=== PATIENT | female | born 1935 | race Caucasian/White ===

== ENCOUNTER 2016-12-30 11:43 | Emergency (ER) | payer OTHER ==
[~2016-12-30] VITALS: Ht 160 cm; Wt 81.6 kg
[~2016-12-30 11:43] MED LIST: ANUSOL HC30 GM TOP; CIPRO500 M1 PO; CLONAZEPAM0.5 MG PO; COUMADIN1 M1 PO; DETROL LA 4MG4 MG PO; ESCITALOPRAM OX10 MG PO; ESCITALOPRAM10 MG PO; FLAGYL500 MG PO; GALANTAMINE PO; LASIX20 M1 PO; LIPITOR40 M1 PO; MIRTAZAPINE15 M2 PO; NAMENDA10 M2 PO; NEXIUM 40MG40 MG PO; NEXIUM40 M1 PO; PRINIVIL10 M1 PO; RAZADYNE ER16 M1 PO; REQUIP0.25 MG PO; RISPERDAL1 MG PO; SINEMET 10-1001 TAB PO; SINEMET CR 50 M1 TER PO; SINEMET CR 50-1 EACH PO; VERAPAMIL ER240 M1 PO; VITAB121000 PO; ZOFRAN4 M1 PO
[2016-12-30 11:59] VITALS: BP 147/79
--- NOTE | 2016-12-30 12:22 | ED MVC/FALL/TRAUMA COMPLAINT ---
History of Present Illness General Chief Complaint: Laceration Procedure Stated Complaint: SKIN TEAR TO LEFT NECK, PAIN. Source: patient Exam Limitations: no limitations Vital Signs & Intake/Output Vital Signs & Intake/Output Vital Signs Date Time Temp Pulse Resp B/P Pulse O2 O2 Flow FiO2 Ox Delivery Rate 12/30 1159 98.0 58 18 147/79 97 Room Air ED Intake and Output 12/31 0000 12/30 1200 Intake Total Output Total Balance Patient 180 lb Weight Allergies Coded Allergies: NO KNOWN ALLERGIES (08/03/15) Reconcile Medications Atorvastatin Calcium (Lipitor) 40 MG TAB 1 TAB PO DAILY CHOLESTEROL (Reported ) Carbidopa/Levodopa (Sinemet Cr) 50 MG/[address] 1 TAB PO BID PARKINSONS ( Reported) Ciprofloxacin HCl (Cipro) 500 MG TABLET 1 TAB PO BID DIVERTICULITIS Cyanocobalamin (Vitamin B-12) 1,000 MCG TAB 1 TAB PO DAILY V (Reported) Escitalopram Oxalate 10 MG TAB 1 TAB PO DAILY DEPRESSION (Reported) Esomeprazole (Nexium) 40 MG CAP 1 CAP PO DAILY GI (Reported) Furosemide (Lasix) 20 MG TAB 1 TAB PO DAILY FLUID (Reported) GALANTAMINE HBR (Galantamine HBr) 16 MG CER 1 TAB PO DAILY DEMENTIA (Reported ) Lisinopril 10 MG TAB 1 TAB PO DAILY HTN (Reported) MEMANTINE HCL (Namenda) 10 MG TAB 10 MG PO DAILY DEMENTIA (Reported) Metronidazole (Flagyl) 500 MG TABLET 1 TAB PO 4 TIMES/DAY DIVERTICULITIS Mirtazapine 15 MG TAB 1 TAB PO QPM SLEEP (Reported) Ondansetron (Zofran Odt) 4 MG ODT 1 TAB PO Q6HR PRN NAUSEA Risperidone (Risperdal) 1 MG TAB 1 MG PO PRN ANXIETY (Reported) ROPINIROLE HCL (Ropinirole Hydrochloride) 0.25 MG TAB 1 TAB PO DAILY LEGS ( Reported) VERAPAMIL HCL (Verapamil ER) [address] 1 TAB PO DAILY HR (Reported) Warfarin Sodium (Coumadin) 1 MG TAB 1 TAB PO DAILY BLOOD THINNER (Reported) Triage Note: RECEIVED 81 YO FEMALE C/O SKIN TEAR TO LEFT NECK AREA, PT REPORTS SPOTTING WHEN CHANGING BANDAIDS, PT SAYS HER SKIN IS VERY THIN Triage Nurses Notes Reviewed? yes Onset: Abrupt Duration: day(s): (1) Timing: single episode today Severity: mild Injuries/Fall Location: neck (left) Method of Injury: rubbed with washcloth No Modifying Factors: none Associated Symptoms: MINIMAL BLEEDING HPI: 81 year old female presents to the ER with bleeding from the left neck which started after washing her neck in the shower with a washcloth. She is on eliquis and aspirin. She placed a dressing yesterday and was concerned so she wanted to have it checked today. Past History Travel History Traveled to [place] past 21 day No Medical History Any Pertinent Medical History? see below for history Neurological: dementia, Parkinson's disease EENT: NONE Cardiovascular: hypertension, HIGH CHOLESTEROL Respiratory: BLOOD CLOTS IN LUNGS Gastrointestinal: NONE Hepatic: NONE Renal: NONE Musculoskeletal: NONE Psychiatric: NONE Endocrine: NONE Surgical History Surgical History: non-contributory Psychosocial History Who do you live with Patient/Self Services at Home None What is your primary language Citizen Of [place] Tobacco Use: Never used Family History Hx Contributory? No Review of Systems Review of Systems Constitutional: Denies: chills, fever. Eyes: Reports: no symptoms. Ears, Nose, Throat, Mouth: Reports: no symptoms. Respiratory: Denies: cough. Cardiovascular: Denies: chest pain. Gastrointestinal/Abdominal: Reports: no symptoms. Genitourinary: Reports: no symptoms. Musculoskeletal: Reports: neck pain. Denies: back pain. Skin: Reports: see HPI (BLEEDING), erythema. Neurological/Psychological: Reports: no symptoms. All Other Systems: Reviewed and Negative Physical Exam Physical Exam General Appearance: well developed/nourished, alert, anxious Head: atraumatic, normal appearance Eyes: Bilateral: normal appearance, PERRL. Ears, Nose, Throat, Mouth: dental injury, moist mucous membrane Neck: LEFT NECK SKIN TEAR, MINIMAL OOZING FROM SITE Respiratory: normal breath sounds, chest non-tender, no respiratory distress Cardiovascular: regular rate/rhythm Extremities: normal range of motion Neurologic/Psych: no motor/sensory deficits, awake, alert, oriented x 3 Skin: intact, normal color, warm/dry, ecchymosis (AREAS AROUND LEFT NECK) Core Measures ACS in differential dx? No Severe Sepsis Present: No Septic Shock Present: No Progress Differential Diagnosis: LEFT NECK SKIN TEAR Plan of Care: BACITRACIN, NON ADHERENT DRESSING PLACED Departure Departure Time of Disposition: 1230 Disposition: HOME OR SELF CARE Condition: Stable Clinical Impression Primary Impression: Skin tear Referrals: CAYLA TEMPLETON MD (PCP/Family) Additional Instructions: Topical antibiotic ointment as discussed and dressing change. Return as needed. Departure Forms: Customer Survey General Discharge Information
== END 2016-12-30 12:50 ==
LOC: ERH 11:43
DX: S11.91XA Laceration without foreign body of unspecified part of neck, initial encounter (principal); X58.XXXA Exposure to other specified factors, initial encounter; Y93.E1 Activity, personal bathing and showering; Y92.9 Unspecified place or not applicable
CPT/HCPCS: 99282

== ENCOUNTER 2017-01-24 13:54 | Emergency (ER) | payer OTHER ==
[~2017-01-24] VITALS: Ht 160 cm; Wt 82.6 kg
--- NOTE | 2017-01-24 14:23 | ED GENERAL ADULT ---
History of Present Illness General Chief Complaint: General Adult Stated Complaint: SENT IT BY DR TEMPLETON, ?LOW HR Source: patient, old records Exam Limitations: no limitations Vital Signs & Intake/Output Vital Signs & Intake/Output Vital Signs Date Time Temp Pulse Resp B/P B/P Pulse O2 O2 Flow FiO2 Mean Ox Delivery Rate 01/24 1746 69 18 144/72 98 Room Air 01/24 1534 97.6 62 18 129/62 97 Room Air 01/24 1452 97 01/24 1436 98.9 63 15 132/74 100 Room Air Allergies Coded Allergies: NO KNOWN ALLERGIES (08/03/15) Reconcile Medications Aspirin (Aspirin*) 81 MG TAB.CHEW 1 TAB PO DAILY HEART HEALTH (Reported) Atorvastatin Calcium (Lipitor) 40 MG TABLET 1 TAB PO DAILY CHOLESTEROL ( Reported) Carbidopa/Levodopa (Sinemet Cr 50-200 Tablet) 50 MG-200 MG TABLET.ER 1 TAB PO BID PARKINSONS (Reported) Escitalopram Oxalate 10 MG TABLET 1 TAB PO DAILY DEPRESSION (Reported) Esomeprazole (Nexium) 40 MG CAPSULE.DR 1 CAP PO DAILY GI (Reported) Furosemide (Lasix) 20 MG TABLET 1 TAB PO DAILY WATER RETENTION (Reported) Galantamine HBr (Razadyne ER) 16 MG CAP24H.PEL 1 TAB PO DAILY DEMENTIA ( Reported) Krill/Om-3/Dha/Epa/Phospho/Ast (Megared [place]-3 Krill Oil Sfgl) 300-90-24 CAPSULE 1 CAP PO DAILY SUPPLEMENT (Reported) Linaclotide (Linzess) 290 MCG CAPSULE 1 CAP PO DAILY UNKNOWN (Reported) Lisinopril (Prinivil) 10 MG TABLET 1 TAB PO DAILY HTN (Reported) Memantine HCl (Namenda) 10 MG TABLET 1 TAB PO DAILY DEMENTIA (Reported) Mirtazapine 15 MG TABLET 1 TAB PO QPM SLEEP (Reported) Ropinirole Hydrochloride (Requip) 0.25 MG TABLET 1 TAB PO DAILY LEGS ( Reported) Verapamil HCl (Verapamil ER) 240 MG TABLET.ER 1 TAB PO DAILY HR (Reported) Warfarin Sodium (Coumadin) 1 MG TABLET 1 TAB PO 1700 BLOOD THINNER (Reported) Triage Note: PT TO ED FROM DR. HADLEY'S OFFICE FOR "LOW HEART RATE" PT STATING SHE HAD A NEAR SYNCOPAL EPISODE "ONE NIGHT LAST WEEK" PT STATING SHE GOT UP TO USE THE BATHROOM, FELL TO THE GROUND AND THEN "I LIED THERE FOR A FEW MINUTES THEN WENT BACK TO BED AND FELT FINE". PT REPORTING INTERMITTENT DIZZINESS, DENIES CP, SOB, LEWIS. Triage Nurses Notes Reviewed? yes Onset: Last week Duration: minute(s): (5) Timing: no prior history Injury Environment: home Severity: moderate Severity Numbers: 5 Modifying Factors: Improves With: other (TIME,LAYING DOWN). HPI: Patient is an 81-year-old female presenting to the emergency department from her primary care physician's office with chief complaint of near syncopal episode that happened last week. Patient reports that she got up to use the bathroom at 3 AM on Saturday and when coming back from the bathroom she got lightheaded and fell to the ground. Denies any head injury or loss of consciousness. She was able to crawl to her bed and fell asleep. She's been asymptomatic since. Denies any chest pain or palpitations or shortness of breath. Denies any visual changes. She mom brought this up to her primary care physician today during the exam and he sent her into the emergency department for evaluation. He was concerned that her heart rate IV on the lower side as he documented a heart rate of 40 in the exam room. Patient denying any recent travel. No recent illness. No fevers or chills. Her primary care physician patient on Coumadin, was recently on hold secondary to elevated Coumadin level. She supposed to resume Coumadin dosing tomorrow. Denies any urinary symptoms. No nausea or vomiting or abdominal pain. No back pain. Denies any injury from the fall last week. (KEDAR LEWIS) Past History Travel History Traveled to [place] past 21 day No Medical History Any Pertinent Medical History? see below for history Neurological: dementia, Parkinson's disease EENT: NONE Cardiovascular: hypertension, HIGH CHOLESTEROL Respiratory: BLOOD CLOTS IN LUNGS Gastrointestinal: NONE Hepatic: NONE Renal: NONE Musculoskeletal: NONE Psychiatric: NONE Endocrine: NONE Blood Disorders: NONE Cancer(s): NONE Surgical History Surgical History: non-contributory Psychosocial History Who do you live with Patient/Self Services at Home None What is your primary language [place] Tobacco Use: Never used ETOH Use: denies use Illicit Drug Use: denies illicit drug use Family History Hx Contributory? No (KEDAR LEWIS) Review of Systems Review of Systems Constitutional: Reports: no symptoms. Comments Review of systems: See HPI, All other systems negative. Constitutional, no chills fever or weight loss HEENT: No visual changes no sore throat no congestion Cardiovascular: No chest pain ,palpitation , orthopnea or ankle swelling Skin, no jaundice no rashes Respiratory: No dyspnea cough sputum or hemoptysis GI: No nausea no vomiting : No dysuria No hematuria Muscle skeletal: no back pain, no neck pain, Neurologic: No numbness no confusion Psych: No stress anxiety or depression,. Heme/endocrine: No bruising no bleeding no polyuria or polydipsia Immunology: No splenectomy or history of AIDS (KEDAR LEWIS) Physical Exam Physical Exam General Appearance: well developed/nourished, no apparent distress, alert, awake , comfortable Comments: Well-developed well-nourished person in no acute distress HEENT: Normal EENT exam, extraocular motion intact, no nystagmus. Pupils equally round and reactive to light and accommodation. Nose is atraumatic. External auditory canal and Tympanic membranes clear. Pharynx normal. No swelling or edema. FUNDOSCOPIC: NO ACUTE VENOUS NICKING OR RETINAL DETACHMENT APPRECIATED. SOMEWHAT LIMITED DUE TO NO DIALTION PRIOR TO EXAM. Neck: Supple, no lymphadenopathy, normal range of motion without pain or tenderness Back: Nontender Cardiovascular: Regular rate and rhythms no murmurs rubs or gallops, normal JVP Respiratory: Chest nontender. No respiratory distress.breath sounds clear to auscultation bilaterally Abdomen: Soft, nontender nondistended, no appreciable organomegaly. Normal bowel sounds. No ascites. NO REBOUND OR GAURDING. Extremity: No edema, no calf tenderness to palpation, normal and equal pulses. MUSCLE STRENGTH IS 5/5 HOSSEIN LL EXT. [employer] STRENGTH EQUAL AND SYMMETIC BILATERALLY. Neuro: Alert oriented x3, motor sensory normal, cranial nerves II through XII grossly intact. CEREBELLAR TESTING INTACT. Skin: No appreciable rash on exposed skin, skin is warm and dry. Psych: Mood and affect is normal, memory and judgment is normal. Core Measures ACS in differential dx? No CVA/TIA Diagnosis: No Severe Sepsis Present: No Septic Shock Present: No (KEDAR LEWIS) Progress Differential Diagnoses I considered the following diagnoses in my evaluation of the patient: ORTHOSTATIC HYPOTENSION, ELECTROLYTE ABNORMALITY, ACS, SICK SINUS SYNDROME,PE, CVA, symptomatic bradycardia Plan of Care: Orders Procedure Date/time Status TROPONIN LEVEL 01/24 1618 Complete EKG 01/24 161 Active URINALYSIS 01/24 1609 Complete MISTAKE 01/24 1402 Active Telemetry/[employer] 01/24 140 Active TROPONIN LEVEL 01/24 140 Complete PROTHROMBIN TIME 01/24 1402 Complete MAGNESIUM 01/24 140 Complete COMPREHENSIVE METABOLIC PANEL 01/24 140 Complete CREATINE PHOSPHOKINASE 01/24 140 Complete CBC WITHOUT DIFFERENTIAL 01/24 140 Complete EKG 01/24 1401 Active Laboratory Tests 01/24/17 1723: Urine Color YEL, Urine Clarity CLEAR, Urine pH 6.5, Ur Specific [place] 1.020, Urine Protein NEG, Urine Ketones NEG, Urine Nitrite NEG, Urine Bilirubin NEG, Urine Urobilinogen 0.2, Ur Leukocyte Esterase NEG, Ur Microscopic EXAM NOT REQUIRED, Urine Hemoglobin NEG, Urine Glucose NEG 01/24/17 1628: Troponin I < 0.01 01/24/17 1440: Anion Gap 10, Estimated GFR 53 L, BUN/Creatinine Ratio 23.0, Glucose 94, Calcium 9.6, Magnesium 1.9, Total Bilirubin 0.7, AST 20, ALT 28, Alkaline Phosphatase 114, Creatine Kinase 46, Troponin I < 0.01, Total Protein 6.4, Albumin 4.0, Globulin 2.4, Albumin/Globulin Ratio 1.7, PT 24.9 H, INR 2.39 H, CBC w Diff NO MAN DIFF REQ, RBC 4.34, MCV 90.9, MCH 30.2, RDW 13.0, MPV 7.6, Gran % 63.0, Lymphocytes % 25.2, Monocytes % 8.5, Eosinophils % 2.9, Basophils % 0.4, Absolute Granulocytes 3.4, Absolute Lymphocytes 1.4, Absolute Monocytes 0.5 , Absolute Eosinophils 0.2, Absolute Basophils 0, PUBS MCHC 33.2 Diagnostic Imaging: Viewed by Me: Radiology Read, CT Scan. Discussed w/RAD: Radiology Read, CT Scan. Radiology Impression: PATIENT: RAVI RIVER PRESENT AGE: 81 PATIENT ACCOUNT NO: [id number] : 33 LOCATION: [facility] ORDERING PHYSICIAN: KEDAR MARSHALL SERVICE DATE: 01/24/17 EXAM TYPE: CAT - CT HEAD WO IV CONTRAST EXAMINATION: CT HEAD WITHOUT CONTRAST CLINICAL INFORMATION: Near syncope. COMPARISON: CT head 05/09/2006 TECHNIQUE: Contiguous axial imaging was performed from the skull base to vertex without intravenous administration of contrast. DLP: 609.1 mGy-cm FINDINGS: There is no evidence of acute intracranial hemorrhage or territorial infarction. No abnormal mass effect or midline shift is seen. Hernandez to white matter differentiation is well preserved. No extra-axial fluid collections are identified. There is atrophy with prominence of the ventricles and the sulci and hypodensity of the periventricular white matter due to chronic small vessel ischemic disease. There is vascular calcifications of the internal carotid arteries and vertebral arteries bilaterally. The osseous structures and soft tissues are normal. The mastoid air cells and visualized portions of the paranasal sinuses are well aerated. IMPRESSION: No acute intracranial pathology. DICTATED BY: ABUNDIO FOSTER MD DATE/TIME DICTATED:01/24/171543 WRONG ADDRESS CLERK:RICK DATE/TIME TRANSCRIBED:01/24/171543 CONFIDENTIAL, DO NOT COPY WITHOUT APPROPRIATE AUTHORIZATION. <Electronically signed in Other Vendor System> SIGNED BY: ABUNDIO FOSTER MD 01/24/17 1551 CXR Impression: PATIENT: RAVI RIVER PRESENT AGE: 81 PATIENT ACCOUNT NO: [id number] : 33 LOCATION: [facility] ORDERING PHYSICIAN: KEDAR MARSHALL SERVICE DATE: 01/24/17 EXAM TYPE: RAD - XRY-PORTABLE CHEST XRAY EXAMINATION: XR PORTABLE CHEST CLINICAL INFORMATION: Syncope. COMPARISON: CTA chest 07/18/2009. TECHNIQUE: Portable frontal view of the chest was obtained. FINDINGS: There is some chronic elevation of the right hemidiaphragm. The heart size is normal. The lungs are clear without infiltrates , effusions or masses seen on this single view. Scarring is noted in the right lung laterally, which was present in 2008. IMPRESSION: No acute disease. Initial ED EKG: NSR (55 bpm) Repeat EKG: changed ([place] 45 BPM) Comments: Patient is asymptomatic, neurologically intact. Patient will go for CT head, EKG, CBC, CMP, troponin and mag. Currently heart rate is around 60 bpm on the monitor. Sinus rhythm. We will also assess orthostatics. Patient was informed of all labwork results, EKG results and imaging studies. She still asymptomatic. Orthostatics have improved after fluids. Heart rate does drop into the upper 40s at times but returns into the low 60s within minutes. Patient asymptomatic during this. Spoke with Dr. Coleman, he is recommending that the patient call his office tomorrow to set her up with a Holter monitor. She will call first thing in the morning. Patient discharged home. Discussed with Dr. Locke and he agrees with plan. She will return for worsening symptoms or concerns. Patient is not hypoxic or tachycardic or tachypneic. She has no unilateral leg swelling. I do not think she has a pulmonary embolus. She'll follow up with cardiology tomorrow. Patient has been ambulating to the bathroom without difficulty. Steady gait. (KEDAR LEWIS) Departure Departure Time of Disposition: 1750 Disposition: HOME OR SELF CARE Condition: Stable Clinical Impression Primary Impression: Orthostatic hypotension Secondary Impressions: Bradycardia, Near syncope Referrals: Georgi COLEMAN MD, MD,CAYLA Rivas (PCP/Family) Additional Instructions: Follow-up with Dr. Coleman, call tomorrow to make an appointment. He will set YOU UP with a Holter monitor. Return for any worsening symptoms or concerns. INCREASE FLUIDS. Departure Forms: Customer Survey General Discharge Information (KEDAR LEWIS) PA/CHECKMAN Co-Sign Statement Statement: ED Attending supervision documentation- [X] I saw and evaluated the patient. I have also reviewed all the pertinent lab results and diagnostic results. I agree with the findings and the plan of care as documented in the PA's/CHECKMAN's documentation. [] I have reviewed the ED Record and agree with the PA's/CHECKMAN's documentation. [] Additions or exceptions (if any) to the PAs/CHECKMAN's note and plan are summarized below: [] (NANCI YAN,TEENA Tavares) Critical Care Note Critical Care Note Critical Care Time: non-applicable (KEDAR LEWIS) ED Attending Observation Initial Observation Note: I have seen and personally examined RAVI RIVER on 01/24/17 at 1831. I agree with the current emergency department documentation. The disposition (admission or discharge) is uncertain at this time, she needs a period of observation for the following reason(s): The ED Nurse caring for this patient has been personally informed as to what the patient is being observed for. (NYDIA MARSHALL,KEDAR)
[2017-01-24] MEDS ORDERED: LINZESS290 MC1 PO (14:43)
[2017-01-24] MEDS ORDERED: ASPIRIN81 M4 PO (14:44)
[2017-01-24] MEDS ORDERED: MEGARED OMEGA-1 EAC2 PO (14:45)
[2017-01-24 14:48] LABS: ABSOLUTE BASOPHIL COUNT 0 /CUMM (0.0-0.2); ABSOLUTE EOSINOPHIL COUNT 0.2 /CUMM (0.0-0.7); ABSOLUTE GRANULOCYTE CT 3.4 /CUMM (1.4-6.5); ABSOLUTE LYMPH COUNT 1.4 /CUMM (1.2-3.4); ABSOLUTE MONOCYTE COUNT 0.5 /CUMM (0.10-0.60); BASOPHIL % 0.4 % (0.0-2.0); EOSINOPHIL % 2.9 % (0-5); HEMATOCRIT 39.5 % (37-47); MEAN CORPUSCULAR HGB 30.2 PG (27.0-31.0); MEAN CORPUSCULAR HGB CONC 33.2 G/DL (33.0-37.0); MEAN CORPUSCULAR VOLUME 90.9 FL (81.0-99.0); MEAN PLATELET VOLUME 7.6 FL (7.4-10.4); PLATELET COUNT 181 /CUMM (130-400); RED BLOOD CELL CT 4.34 /CUMM (4.20-5.40); WHITE BLOOD CELL COUNT 5.4 /CUMM (4.8-10.8)
[2017-01-24 14:56] LABS: PT 24.9 SEC (9.4-12.5)
--- NOTE | 2017-01-24 15:27 | RADIOLOGY REPORT ---
EXAMINATION: XR PORTABLE CHEST CLINICAL INFORMATION: Syncope. COMPARISON: CTA chest 07/18/2009. TECHNIQUE: Portable frontal view of the chest was obtained. FINDINGS: There is some chronic elevation of the right hemidiaphragm. The heart size is normal. The lungs are clear without infiltrates, effusions or masses seen on this single view. Scarring is noted in the right lung laterally, which was present in 2008. IMPRESSION: No acute disease.
--- NOTE | 2017-01-24 15:51 | CT SCAN REPORT ---
EXAMINATION: CT HEAD WITHOUT CONTRAST CLINICAL INFORMATION: Near syncope. COMPARISON: CT head 05/09/2006 TECHNIQUE: Contiguous axial imaging was performed from the skull base to vertex without intravenous administration of contrast. DLP: 609.1 mGy-cm FINDINGS: There is no evidence of acute intracranial hemorrhage or territorial infarction. No abnormal mass effect or midline shift is seen. Hernandez to white matter differentiation is well preserved. No extra-axial fluid collections are identified. There is atrophy with prominence of the ventricles and the sulci and hypodensity of the periventricular white matter due to chronic small vessel ischemic disease. There is vascular calcifications of the internal carotid arteries and vertebral arteries bilaterally. The osseous structures and soft tissues are normal. The mastoid air cells and visualized portions of the paranasal sinuses are well aerated. IMPRESSION: No acute intracranial pathology.
[2017-01-24 17:46] VITALS: BP 144/72
== END 2017-01-24 18:43 ==
LOC: ERH 13:54
PROVIDERS: Physician Assistant
DX: I95.1 Orthostatic hypotension (principal); R00.1 Bradycardia, unspecified; R55 Syncope and collapse
CPT/HCPCS: 81003; 93005; 93010; 96360

== ENCOUNTER 2017-09-23 11:21 | Emergency (ER) | payer OTHER ==
[~2017-09-23] VITALS: Ht 161.3 cm; Wt 82.6 kg
[~2017-09-23 11:21] MED LIST changes: +ASPIRIN81 M4 PO; +LINZESS290 MC1 PO; +MEGARED OMEGA-1 EAC2 PO
--- NOTE | 2017-09-23 13:30 | ED DYSPNEA/ASTHMA COMPLAINT ---
History of Present Illness General Chief Complaint: Upper Respiratory Sx/Fever Stated Complaint: COUGH AND CONGESTION Source: patient, family Exam Limitations: poor historian Vital Signs & Intake/Output Vital Signs & Intake/Output Vital Signs Date Time Temp Pulse Resp B/P B/P Pulse O2 O2 Flow FiO2 Mean Ox Delivery Rate 09/23 1536 98.9 90 18 131/60 95 Room Air 09/23 1352 96 09/23 1343 53 20 147/67 96 Room Air 09/23 1124 99.4 91 18 165/76 98 Room Air Room Air Allergies Coded Allergies: NO KNOWN ALLERGIES (08/03/15) Reconcile Medications Aspirin (Aspirin*) 81 MG TAB.CHEW 1 TAB PO DAILY HEART HEALTH (Reported) Atorvastatin Calcium (Lipitor) 40 MG TABLET 1 TAB PO DAILY CHOLESTEROL ( Reported) Azithromycin (Zithromax) 250 MG TABLET 1 DP PO AD BRONCHITIS 2 the first day followed by 1 for days 2-5 Benzonatate 200 MG CAPSULE 1 CAP PO TIDPRN COUGH Carbidopa/Levodopa (Sinemet Cr 50-200 Tablet) 50 MG-200 MG TABLET.ER 1 TAB PO BID PARKINSONS (Reported) Escitalopram Oxalate 10 MG TABLET 1 TAB PO DAILY DEPRESSION (Reported) Esomeprazole (Nexium) 40 MG CAPSULE.DR 1 CAP PO DAILY GI (Reported) Furosemide (Lasix) 20 MG TABLET 1 TAB PO DAILY WATER RETENTION (Reported) Galantamine HBr (Razadyne ER) 16 MG CAP24H.PEL 1 TAB PO DAILY DEMENTIA ( Reported) Krill/Om-3/Dha/Epa/Phospho/Ast (Megared Verner-3 Krill Oil Sfgl) 300-90-24 CAPSULE 1 CAP PO DAILY SUPPLEMENT (Reported) Linaclotide (Linzess) 290 MCG CAPSULE 1 CAP PO DAILY UNKNOWN (Reported) Lisinopril (Prinivil) 10 MG TABLET 1 TAB PO DAILY HTN (Reported) Memantine HCl (Namenda) 10 MG TABLET 1 TAB PO DAILY DEMENTIA (Reported) Mirtazapine 15 MG TABLET 1 TAB PO QPM SLEEP (Reported) Ropinirole Hydrochloride (Requip) 0.25 MG TABLET 1 TAB PO DAILY LEGS ( Reported) Verapamil HCl (Verapamil ER) 240 MG TABLET.ER 1 TAB PO DAILY HR (Reported) Warfarin Sodium (Coumadin) 1 MG TABLET 1 TAB PO 1700 BLOOD THINNER (Reported) Triage Note: TRIAGE: 82 Y/O FEMALE PRESENTS C/O COUGH AND CONGESTION. "WHEN I COUGH, I FEEL LIKE MY LUNGS ARE GOING TO BREAK." TEMP 99.4 IN TRIAGE. Triage Nurses Notes Reviewed? yes Onset: Abrupt Duration: day(s): (few) Timing: recent history Severity: mild, moderate HPI: 82-year-old female comes into the emergency room with complaints of cough nonproductive and shortness of breath. Denies any fever or chills body aches. Denies any mucus production. Symptoms were going on for the past 3 days. She denies any chest pain. Nothing seems to make them better. She comes in for further evaluation. (Wilfred Ryan) Past History Travel History Traveled to [place] past 21 day No Medical History Any Pertinent Medical History? 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 No (Wilfred Ryan) Review of Systems Review of Systems Constitutional: Reports: no symptoms. EENTM: Reports: see HPI. Respiratory: Reports: see HPI. Cardiovascular: Reports: no symptoms. GI: Reports: no symptoms. Genitourinary: Reports: no symptoms. Musculoskeletal: Reports: no symptoms. Skin: Reports: no symptoms. Neurological/Psychological: Reports: no symptoms. Hematologic/Endocrine: Reports: no symptoms. Immunologic/Allergic: Reports: no symptoms. All Other Systems: Reviewed and Negative (Wilfred Ryan) Physical Exam Physical Exam General Appearance: well developed/nourished, no apparent distress, alert, awake Head: atraumatic Eyes: Bilateral: normal appearance. Ears, Nose, Throat: normal ENT inspection, hearing grossly normal Neck: normal inspection Respiratory: no respiratory distress Cardiovascular: regular rate/rhythm Gastrointestinal: soft Skin: intact, normal color Core Measures ACS in differential dx? No CVA/TIA Diagnosis No Sepsis Present: No Sepsis Focused Exam Completed? No (Wilfred Ryan) Progress Differential Diagnosis: asthma, AMI, bronchitis, costochondritis, CHF, COPD, musculoskeletal pain, pericarditis, pulmonary embolism, pneumonia, pneumothorax, unstable angina Plan of Care: Orders Procedure Date/time Status Add-on Test (ER Only) 09/23 1419 Active D-DIMER 09/23 1342 Complete TROPONIN LEVEL 09/23 1328 Complete COMPREHENSIVE METABOLIC PANEL 09/23 1328 Complete CBC WITHOUT DIFFERENTIAL 09/23 1328 Complete EKG 09/23 1328 Active Laboratory Tests 09/23/17 1342: Anion Gap 9, Estimated GFR 53 L, BUN/Creatinine Ratio 20.0, Glucose 103 H, Calcium 9.9, Total Bilirubin 0.9, AST 16, ALT 19, Alkaline Phosphatase 94, Troponin I < 0.01, Total Protein 6.1 L, Albumin 3.5, Globulin 2.6, Albumin/ Globulin Ratio 1.3, D-Dimer High Sensitivty 330 H, CBC w Diff NO MAN DIFF REQ, RBC 4.13 L, MCV 91.3, MCH 30.0, RDW 12.9, MPV 7.8, Gran % 72.2, Lymphocytes % 15.0 L, Monocytes % 10.5 H, Eosinophils % 2.0, Basophils % 0.3, Absolute Granulocytes 6.2, Absolute Lymphocytes 1.3, Absolute Monocytes 0.9 H, Absolute Eosinophils 0.2, Absolute Basophils 0, PUBS MCHC 32.9 L Diagnostic Imaging: Viewed by Me: Radiology Read. Discussed w/RAD: Radiology Read. Radiology Impression: PATIENT: RAVI RIVER PRESENT AGE: 82 PATIENT ACCOUNT NO: [id number] : 33 LOCATION: [facility] ORDERING PHYSICIAN: Maxwell Hodges MD SERVICE DATE: 09/23/17-1250 EXAM TYPE: RAD - XRY-CHEST XRAY, TWO VIEWS EXAMINATION: XR CHEST CLINICAL INFORMATION : Cough. Presumptive diagnosis: Pneumonia. COMPARISON: None TECHNIQUE: PA and lateral views of the chest are obtained. FINDINGS: The heart is normal in size. There is no change in mild perihilar peribronchial thickening. There is no congestion or focal consolidation. Mild right lateral lung scarring is unchanged. There are stable hypertrophic degenerative changes of the spine. IMPRESSION: No acute cardiopulmonary process. DICTATED BY: Zeus Ozuna MD DATE/TIME DICTATED:09/23/171345 SURGICAL APPLIANCES SALESPERSON:RICK DATE/TIME TRANSCRIBED:09/23/171345 CONFIDENTIAL, DO NOT COPY WITHOUT APPROPRIATE AUTHORIZATION. <Electronically signed in Other Vendor System> SIGNED BY: Zeus Ozuna MD 09/23/17 1350 Initial ED EKG: normal sinus rhythm, rate (57), borderline T-wave abnormalities (Kobe MARSHALL,Wilfred) Departure Departure Disposition: HOME OR SELF CARE Condition: Stable Clinical Impression Primary Impression: Bronchitis Referrals: Suzette ESTRADA,Karri Rivas (PCP/Family) Additional Instructions: Take azithromycin and Tessalon Perles as prescribed. Follow-up with primary care doctor. Return if any concerns. Please go over all results of today's visit with your primary care doctor. Contact your primary care doctor to let them know you were here in the emergency room. There may be nonspecific findings which may not be related to your visit today here in the emergency room but may require further evaluation and chronic monitoring by your primary care doctor. If you had a laceration today the chance of foreign body always remains. You should follow-up with your primary care doctor for recheck in 3-5 days for a wound check. If you had an x-ray done there is a chance that a fracture could have been missed on initial read and you should follow-up with your primary care doctor for repeat x-rays if symptoms persist. If your blood pressure was elevated here in the emergency room please have rechecked by [facility] primary care doctor within the next 48. If you were prescribed a narcotic here in the emergency room or any type of controlled substances you're not allowed to drive while taking this medication or operate any type of heavy machinery. Narcotics can make you feel lightheaded dizziness nausea and can cause constipation. You may need to picker machine operator a stool softener. Thank you for choosing [facility] emergency room. Please return to the emergency room immediately if you have any other concerns worsening of symptoms. Departure Forms: Customer Survey General Discharge Information Prescriptions: Current Visit Scripts Azithromycin (Zithromax) 1 DP PO AD #6 TAB 2 the first day followed by 1 for days 2-5 Benzonatate 1 CAP PO TIDPRN #30 CAP Comments 09/23/2017 4:35:07 PM Patient clinically looks well. Age-adjusted d-dimer is negative. Symptoms are most consistent with bronchitis/viral infection. Due to age patient covered with a Z-Henry. Follow-up with PCP. Return if any other concerns. Patient understands and agrees with plan of care. case discussed with dr hodges. (Kobe MARSHALL,Wilfred) PA/STRUCTURAL DESIGN ENGINEER Co-Sign Statement Statement: ED Attending supervision documentation- [X] I saw and evaluated the patient. I have also reviewed all the pertinent lab results and diagnostic results. I agree with the findings and the plan of care as documented in the PA's/STRUCTURAL DESIGN ENGINEER's documentation. [X] I have reviewed the ED Record and agree with the PA's/STRUCTURAL DESIGN ENGINEER's documentation. [] Additions or exceptions (if any) to the PAs/STRUCTURAL DESIGN ENGINEER's note and plan are summarized below: [] (Carroll ESTRADA,Maxwell Rollins) Critical Care Note Critical Care Note Critical Care Time: non-applicable (Wilfred Ryan)
--- NOTE | 2017-09-23 13:50 | RADIOLOGY REPORT ---
EXAMINATION: XR CHEST CLINICAL INFORMATION: Cough. Presumptive diagnosis: Pneumonia. COMPARISON: None TECHNIQUE: PA and lateral views of the chest are obtained. FINDINGS: The heart is normal in size. There is no change in mild perihilar peribronchial thickening. There is no congestion or focal consolidation. Mild right lateral lung scarring is unchanged. There are stable hypertrophic degenerative changes of the spine. IMPRESSION: No acute cardiopulmonary process.
[2017-09-23 13:57] LABS: ABSOLUTE BASOPHIL COUNT 0 /CUMM (0.0-0.2); ABSOLUTE EOSINOPHIL COUNT 0.2 /CUMM (0.0-0.7); ABSOLUTE GRANULOCYTE CT 6.2 /CUMM (1.4-6.5); ABSOLUTE LYMPH COUNT 1.3 /CUMM (1.2-3.4); ABSOLUTE MONOCYTE COUNT 0.9 /CUMM (0.10-0.60); BASOPHIL % 0.3 % (0.0-2.0); GRANULOCYTE % 72.2 % (42.2-75.2); HEMATOCRIT 37.7 % (37-47); MEAN CORPUSCULAR HGB CONC 32.9 G/DL (33.0-37.0); MEAN CORPUSCULAR VOLUME 91.3 FL (81.0-99.0); MEAN PLATELET VOLUME 7.8 FL (7.4-10.4); PLATELET COUNT 192 /CUMM (130-400); RBC DISTRIBUTION WIDTH 12.9 % (11.5-14.5); RED BLOOD CELL CT 4.13 /CUMM (4.20-5.40); WHITE BLOOD CELL COUNT 8.6 /CUMM (4.8-10.8)
[2017-09-23] MEDS ORDERED: BENZONATATE200 M1 PO (15:09)
[2017-09-23] MEDS ORDERED: ZITHROMAX250 M2 PO (15:09)
[2017-09-23 15:36] VITALS: BP 131/60
== END 2017-09-23 15:47 ==
LOC: ERH 11:21
PROVIDERS: Physician Assistant Medical
DX: J40 Bronchitis, not specified as acute or chronic (principal); Z87.891 Personal history of nicotine dependence; R06.02 Shortness of breath
CPT/HCPCS: 1263; 71046; 93005; 93010